=== PATIENT | female | born 2000 | race Caucasian/White ===

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

== ENCOUNTER → 2022-01-24 | Outpatient (CLI) | payer OTHER ==
[~2022-01-24] MED LIST changes: +ACET-897 PO
== END ==
LOC: M WHC 08:23
PROVIDERS: ATTEND Advanced Practice Midwife
DX: Z36.2 Encounter for other antenatal screening follow-up (principal); Z3A.38 38 weeks gestation of pregnancy

== ENCOUNTER → 2022-01-25 | Outpatient (REF) | payer OTHER | LOC: M PLALAB 13:40 | PROVIDERS: ATTEND Advanced Practice Midwife | DX: Z36.85 Encounter for antenatal screening for Streptococcus B (principal); Z3A.00 Weeks of gestation of pregnancy not specified ==

== ENCOUNTER 2022-02-16 19:07 | Inpatient (IN) | payer OTHER ==
[~2022-02-16] VITALS: Ht 177.8 cm; Wt 71.1 kg
[2022-02-16] VITALS (10 sets, daily range): BP systolic 96–129; BP diastolic 56–79
[2022-02-16] MEDS ORDERED: HOME MED LIST COMPLETE! XX SCH (19:20)
[2022-02-16] MEDS ORDERED: LACTATED RINGER'S 1000 ML IV STA (19:23)
[2022-02-16] MEDS ORDERED: CARBOPROST TROMETHAMINE 250 MCG/ML AMP IM PRN (19:25)
[2022-02-16] MEDS ORDERED: METHYLERGONOVINE MALEATE 0.2 MG/ML VIAL (J2210) IM PRN (19:25)
[2022-02-16] MEDS ORDERED: LIDOCAINE 1% MDV 20ML VIAL INFIL PRN (19:25)
[2022-02-16] MEDS ORDERED: OXYTOCIN INJ 10 UNITS/ML VIAL (J2590) IM PRN (19:25)
[2022-02-16] MEDS ORDERED: TRANEXAMIC ACID INJection 1,000 MG in NS 100 ML IV PRN (19:25)
[2022-02-16] MEDS ORDERED: OXYTOCIN DRIP 30 UNITS in IV 1 EA IV PRN (19:25)
[2022-02-16] MEDS ORDERED: OXYTOCIN DRIP 30 UNITS in IV 1 EA IV SCH (20:20)
[2022-02-16] MEDS: LR 1,000 ML IV SCH ×2 (20:27→21:43)
[2022-02-16 20:32] LABS: HEMATOCRIT 31.5 % (36.0-47.0); HEMOGLOBIN 9.4 g/dl (12.0-15.5); MEAN CORPUSCULAR HGB CONC 29.8 g/dl (32.0-36.5); MEAN CORPUSCULAR VOLUME 73.8 fl (80.0-96.0); PLATELET COUNT, AUTOMATED 256 10^3/uL (150-450); RED BLOOD COUNT 4.27 10^6/uL (4.00-5.40); WHITE BLOOD COUNT 7.8 10^3/uL (4.0-10.0)
[2022-02-17] VITALS (47 sets, daily range): BP systolic 92–145; BP diastolic 53–85
[2022-02-17] MEDS ORDERED: ePHEDrine SULFATE 25 MG/5 ML(5MG/ML) SYRINGE IVP PRN (01:20)
[2022-02-17] MEDS ORDERED: FENTANYL/ROPIVACAINE/NACL BAG 100 ML EPIDURAL SCH (01:20)
[2022-02-17] MEDS ORDERED: NALOXONE INJ 0.4MG/1ML VIAL (J2310 PER 1MG) IV PRN (01:20)
[2022-02-17] MEDS ORDERED: EPIDURAL/PCA KEYS XX PRN (01:20)
[2022-02-17] MEDS ORDERED: diphenhydrAMINE 50MG/ML VIAL (J1200) IV PRN (01:20)
[2022-02-17] MEDS ORDERED: LR 500 ML IV PRN (01:20)
[2022-02-17] MEDS ORDERED: FENTANYL 2MCG/ML ROPIVACAINE 0.2% IN 0.9% NACL 100ML IVBAG As Ordered ONE (01:30)
[2022-02-17] MEDS: ONDANSETRON 4MG 2ML VIAL IV PRN ×2 (01:40→07:42)
[2022-02-17] MEDS ORDERED: CALCIUM CARBONATE 500 MG CHEW U/D PO ONE (04:00)
[2022-02-17] MEDS: LR 1,000 ML IV SCH (04:10)
[2022-02-17] MEDS ORDERED: RHOGAM 300 MCG (1500 IU) INJ (J2790) IM SCH (09:10)
[2022-02-17] MEDS ORDERED: METHYLERGONOVINE MALEATE 0.2 MG TAB PO PRN (09:10)
[2022-02-17] MEDS ORDERED: DOCUSATE SODIUM 100MG CAPSULE PO PRN (09:10)
[2022-02-17] MEDS ORDERED: DIBUCAINE 1% OINTMENT 30GM TOP PRN (09:10)
[2022-02-17] MEDS: IBUPROFEN 600MG TAB PO PRN ×2 (09:38→17:23)
[2022-02-17] MEDS: ACETAMINOPHEN 500 MG TAB PO PRN ×2 (13:44→20:22)
[2022-02-18 06:00] VITALS: BP 129/84
[2022-02-18] MEDS: IBUPROFEN 600MG TAB PO PRN ×2 (06:34→17:41)
[2022-02-18 07:30] LABS: HEMATOCRIT 26.6 % (36.0-47.0); HEMOGLOBIN 7.8 g/dl (12.0-15.5); MEAN CORPUSCULAR HEMOGLOBIN 21.9 pg (27.0-33.0); MEAN CORPUSCULAR HGB CONC 29.3 g/dl (32.0-36.5); MEAN CORPUSCULAR VOLUME 74.7 fl (80.0-96.0); PLATELET COUNT, AUTOMATED 199 10^3/uL (150-450); RED BLOOD COUNT 3.56 10^6/uL (4.00-5.40); WHITE BLOOD COUNT 11.8 10^3/uL (4.0-10.0)
[2022-02-18] MEDS ORDERED: PRENATAL VITAMINS CHEWABLE TABLET PO SCH (09:00)
[2022-02-18] MEDS ORDERED: ACET-683 PO (10:42)
[2022-02-18] MEDS ORDERED: IBUP-1022 PO (10:42)
[2022-02-18] MEDS ORDERED: COLA100C5 PO (10:42)
[2022-02-18] MEDS ORDERED: FERR325T3 PO (10:43)
[2022-02-18 17:56] VITALS: BP 121/70
[2022-02-19] MEDS ORDERED: MEASLES,MUMPS,RUBELLA VACCINE INJ (MMR-II) (90707) SC.IMMUN ONE (09:00)
== END 2022-02-18 19:05 | disposition home or self-care (01) | DRG 807 ==
LOC: M LDI 19:07 → M OBS 02-17 10:44
PROVIDERS: ADMIT Advanced Practice Midwife; ATTEND Advanced Practice Midwife
PROC: 3E033VJ Introduction of Other Hormone into Peripheral Vein, Percutaneous Approach (ICD-10-PCS; 2022-02-16)
PROC: 3E0P7VZ Introduction of Hormone into Female Reproductive, Via Natural or Artificial Opening (ICD-10-PCS; 2022-02-16)
PROC: 0HQ9XZZ Repair Perineum Skin, External Approach (ICD-10-PCS; 2022-02-16)
PROC: 10E0XZZ Delivery of Products of Conception, External Approach (ICD-10-PCS; principal; 2022-02-17)
PROC: 10907ZC Drainage of Amniotic Fluid, Therapeutic from Products of Conception, Via Natural or Artificial Opening (ICD-10-PCS; 2022-02-17)
DX: O24.410 Gestational diabetes mellitus in pregnancy, diet controlled (principal); Z37.0 Single live birth; Z3A.39 39 weeks gestation of pregnancy; O32.6XX0 Maternal care for compound presentation, not applicable or unspecified; O69.1XX0 Labor and delivery complicated by cord around neck, with compression, not applicable or unspecified; O70.0 First degree perineal laceration during delivery

== ENCOUNTER 2022-03-19 18:48 | Emergency (ER) | payer OTHER ==
[~2022-03-19] VITALS: Ht 177.8 cm; Wt 62.2 kg
[~2022-03-19 18:48] MED LIST changes: +ACET-683 PO; +COLA100C5 PO; +FERR325T3 PO; +IBUP-1022 PO
[2022-03-19 18:49] VITALS: BP 135/74
[2022-03-19 19:54] LABS: HEMATOCRIT 39.3 % (36.0-47.0); HEMOGLOBIN 11.5 g/dl (12.0-15.5); MEAN CORPUSCULAR HEMOGLOBIN 22.5 pg (27.0-33.0); MEAN CORPUSCULAR HGB CONC 29.3 g/dl (32.0-36.5); MEAN CORPUSCULAR VOLUME 76.8 fl (80.0-96.0); PLATELET COUNT, AUTOMATED 292 10^3/uL (150-450); RED BLOOD COUNT 5.12 10^6/uL (4.00-5.40); WHITE BLOOD COUNT 4.8 10^3/uL (4.0-10.0)
[2022-03-19 20:40] LABS: BLOOD UREA NITROGEN 12 MG/DL (7-18); CALCIUM LEVEL 9.1 MG/DL (8.5-10.1); CARBON DIOXIDE LEVEL 25 MEQ/L (21-32); CHLORIDE LEVEL 109 MEQ/L (98-107); CREATININE FOR GFR 0.84 MG/DL (0.55-1.30); GLUCOSE, FASTING 87 MG/DL (70-100); POTASSIUM SERUM 3.9 MEQ/L (3.5-5.1); SODIUM LEVEL 140 MEQ/L (136-145)
== END 2022-03-19 22:09 | disposition left against medical advice (07) ==
LOC: M ED 18:48
DX: Z53.21 Procedure and treatment not carried out due to patient leaving prior to being seen by health care provider (principal)

== ENCOUNTER → 2022-03-22 | Outpatient (REF) | payer OTHER | LOC: M PLALAB 16:58 | PROVIDERS: ATTEND Nurse Practitioner Family | DX: Z53.9 Procedure and treatment not carried out, unspecified reason (principal) ==

== ENCOUNTER → 2022-04-03 | Outpatient (REF) | payer OTHER | LOC: M SFHCWAGY 17:10 | PROVIDERS: ATTEND Obstetrics & Gynecology | DX: N76.6 Ulceration of vulva (principal) ==